=== PATIENT | female | born 1955 | race Caucasian/White ===

== ENCOUNTER 2020-02-25 12:32 | Emergency (ER) | payer BC, MEDICAID ==
[~2020-02-25] VITALS: Ht 162.6 cm; Wt 90.7 kg
--- NOTE | 2020-02-25 12:40 | NUR ---
PT CAME IN AMBULATORY W. STABLE GAIT, HOLDING GAUZE ON HER BLEEDING NOSE, AOX3, ABLE TO SPEAK CLEAR COMPLETE SENTENCES. PATENT AIRWAY. ERMD AT BEDSIDE FOR HX AND PHYSICAL. ERMD ABLE TO APPLY SPRAY,NASAL PACKING AND CLAMP. MONITORED ACCORDINGLY
--- NOTE | 2020-02-25 13:01 | NUR ---
ERMD AT BEDSIDE FOR UPDATE. NASAL CLAMP AND PACKING INTERVENTION REASSESSED W/ MD. PT CURRENTLY DENIES PAIN, NVD, HEADACHES NOR DIZZINESS. NOT IN ANY ACUTE DISTRESS. RA NAD VSS MONITORED ACCORDINGLY
--- NOTE | 2020-02-25 13:28 | NUR ---
PT HAS NO ACTIVE BLEEDING. PT VERBALIZED UNDERSTANDING AND AGREES WITH PLAN OF CARE.
--- NOTE | 2020-02-25 13:29 | NUR ---
Patient discharged to home in stable condition. Written and verbal after care instructions given. Patient verbalizes understanding of instructions. Stressed follow up or return to ER for worsening s/s.
[2020-02-25 13:33] VITALS: BP 149/85
== END 2020-02-25 13:34 | disposition home or self-care (01) ==
LOC: ER 12:32
DX: R04.0 Epistaxis (principal)
CPT/HCPCS: A4663

== ENCOUNTER 2022-05-16 18:40 | Emergency (ER) | payer BC ==
[~2022-05-16] VITALS: Ht 165.1 cm; Wt 82.6 kg
--- NOTE | 2022-05-16 19:25 | NUR ---
Patient A/O x4. NAD noted. Walked into ER with a slight limp.
--- NOTE | 2022-05-16 19:40 | NUR ---
Dr. Campbell at bedside. MSE in progress.
[2022-05-16] MEDS ORDERED: KETOROLAC TROMETHAMINE 60 MG INJ IM ONE ×2 (20:00→20:31)
--- NOTE | 2022-05-16 20:40 | NUR ---
Patient's at bedside.
[2022-05-16] MEDS ORDERED: CEPH500C2 PO (21:10)
[2022-05-16] MEDS ORDERED: IBUP-1955 PO (21:10)
--- NOTE | 2022-05-16 21:17 | NUR ---
Patient discharged to home in stable condition with . A/o x4. NAD noted. All belongings with patient. Written and verbal after care instructions given. Patient verbalizes understanding of instructions. Stressed follow up or return to ER for worsening s/s.
[2022-05-16 21:21] VITALS: BP 141/79
== END 2022-05-16 21:17 | disposition home or self-care (01) ==
LOC: ER 18:40
DX: L03.116 Cellulitis of left lower limb (principal); Z91.81 History of falling; E78.5 Hyperlipidemia, unspecified; R03.0 Elevated blood-pressure reading, without diagnosis of hypertension
CPT/HCPCS: 99283; 73630; 96372; J1885; A4663